=== PATIENT | female | born 1960 | race Caucasian/White ===

== ENCOUNTER 2018-12-27 08:30 | Emergency (ER) | payer SELFPAY ==
--- NOTE | 2018-12-27 08:59 | RAD ---
EXAM: Two views chest PROVIDED CLINICAL HISTORY: Right-sided chest pain after a fall one day ago. COMPARISON: 08/23/2008 FINDINGS: Cardiac silhouette and pulmonary vasculature are within normal limits. The lungs are clear. Degenerat hamilton changes are seen in the spine.There is gas beneath the right hemidiaphragm, but this represents gas within a loop of bowel superimposed between the liver and right hemidiaphragm. IMPRESSION: No acute cardiopulmonary process.
[2018-12-27] MEDS ORDERED: Iopamidol 370 76% 100 ML VIAL ONE (09:37)
[2018-12-27 09:40] LABS: #Basophils 0.1 thou/uL (0.0-0.2); #Eosinphils 0.7 thou/uL (0.0-0.7); #Lymphocytes 1.9 thou/uL (1.20-3.40); %Eosinophils 7.4 % (0.0-10.0); %Lymphocytes 19.2 % (21.0-51.0); %Neutrophils 62.4 % (42.0-75.0); Hemoglobin 13.8 g/dL (12.0-16.0); Mean Corpuscular HGB CONC 32.2 g/dL (32.0-36.0); Mean Corpuscular Hemoglobin 30.4 pg (27.0-31.0); Mean Corpuscular Volume 94.4 fL (78.0-98.0); Mean Platelet Volume 6.4 fL (7.4-10.4); Platelet Count 239 thou/uL (130-400); RBC Distribution Width 12.9 % (11.5-14.5); Red Blood Cell (RBC) Count 4.55 mill/uL (4.20-5.40); White Blood Cell (WBC) Count 9.6 thou/uL (4.8-10.8)
[2018-12-27] MEDS ORDERED: Morphine 4 MG/ML VIAL ONE ×2 (09:42→11:25)
[2018-12-27] MEDS ORDERED: Ondansetron PF 4 MG/2 ML Vial ONE (09:42)
[2018-12-27 10:00] LABS: ALT (SGPT) 19 U/L (8-55); AST (SGOT) 17 U/L (5-34); Albumin 4.2 g/dL (3.5-5.0); Alkaline Phosphatase 61 U/L (40-150); Anion Gap 13 mmol/L (10-20); BUN (Urea Nitrogen) 7 mg/dL (9.8-20.1); Bilirubin, Total 0.4 mg/dL (0.2-1.2); Calc. Creatinine Clearance 0 mL/min (70-130); Carbon Dioxide 27 mmol/L (22-29); Chloride 103 mmol/L (98-107); Estimated GFR-MDRD Greater than 90; Globulin 2.7 g/dL (2.4-3.5); Glucose 93 mg/dL (70-105); Lipase 15 U/L (8-78); Potassium 3.9 mmol/L (3.5-5.1); Protein, Total 6.9 g/dL (6.0-8.3); Sodium 139 mmol/L (136-145)
--- NOTE | 2018-12-27 10:52 | CT ---
CT ABDOMEN AND PELVIS WITH IV CONTRAST: Date: 12/27/18 HISTORY: Injury, fall. Right-sided upper abdominal pain. FINDINGS: There are fractures involving the right 8th, 9th, 10th, and 11th ribs. There are subsegmental atelect atic changes in the lung bases, right greater than left. No free air or free fluid is seen in the abd omen or pelvis. The liver, spleen, pancreas, adrenal glands, and kidneys are intact. The gallbladder and urinary bladder also appear intact. There is colonic diverticulosis. A small bowel loop containin g hernia is seen in the right lower quadrant extending into the inguinal canal without obstruction. A uterus is present. There are degenerative changes in the spine. IMPRESSION: 1. Right rib fractures. 2. No evidence of solid organ injury. POS: [facility]
== END 2018-12-27 11:35 | disposition home or self-care (01) ==
LOC: MADERS 08:30
DX: S22.41XA Multiple fractures of ribs, right side, initial encounter for closed fracture (principal); W01.0XXA Fall on same level from slipping, tripping and stumbling without subsequent striking against object, initial encounter
CPT/HCPCS: 71046; 74177; 80053; 83690; 85025; 96374; 96375; 96376; J2270; J2405; Q9967